=== PATIENT | female | born 1940 | race Caucasian/White ===

== ENCOUNTER 2018-01-26 17:43 | Inpatient (IN) | payer MEDICARE, MEDICAID ==
[~2018-01-26] VITALS: Ht 157.5 cm; Wt 83.4 kg
[2018-01-26 18:50] LABS: Albumin 3.5 g/dL (3.4-5.0); Anion Gap 7 (5-15); Aspartate Aminotransferase 13 U/L (15-37); BUN/Creatinine Ratio 26.7; Blood Urea Nitrogen 16 mg/dL (7-18); Calcium 9.1 mg/dL (8.5-10.1); Carbon Dioxide 30 mmol/L (21-32); Chloride 98 mmol/L (98-107); GFR African American 125 mL/min; GFR Non-African American 104 mL/min; Glucose 106 mg/dL (74-106); Magnesium 1.9 mg/dL (1.6-2.6); Potassium 3.7 mmol/L (3.5-5.1); Sodium 135 mmol/L (136-145)
[2018-01-26 18:55] LABS: Alanine Aminotransferase 14 U/L (13-56); Alkaline Phosphatase 109 U/L (45-117); Bilirubin, Total 0.7 mg/dL (0.2-1.0)
[2018-01-26 18:58] LABS: Basophils # (auto) 0 uL; Basophils % (auto) 0.5 % (0.0-2.0); Eosinophils # (auto) 0.1 uL; Hematocrit 40.3 % (36.0-46.0); Hemoglobin 13.9 g/dL (12.2-16.2); Lymphocytes # (auto) 0.6 uL; Lymphocytes % (auto) 7.2 % (10.0-50.0); Mean Corpuscular Hemoglobin 32.2 pg (28.0-32.0); Mean Corpuscular Hgb Conc. 34.5 g/dL (32.0-36.0); Mean Corpuscular Volume 93.1 fL (80.0-100.0); Monocytes # (auto) 0.5 uL; Monocytes % (auto) 6.2 % (0.0-12.0); Neutrophils # (auto) 7.5 uL; Neutrophils % (auto) 85.1 % (37.0-80.0); Nucleated Red Blood Cells % 0.1 %; Platelet Count (auto) 234 10^3/uL (140-450); Red Blood Cells 4.33 10^6/uL (4.0-5.20); White Blood Cell 8.8 10^3/uL (4.4-10.8)
[2018-01-26] MEDS ORDERED: IPRATROPIUM BROM 0.5 MG/2.5ML INH SOL HHN ONE (19:30)
[2018-01-26] MEDS ORDERED: ALBUTEROL SULF 2.5 MG/0.5ML(0.5%) NEB SOLN HHN ONE (19:30)
[2018-01-26] MEDS ORDERED: methylPREDNISolone SOD SUCC 125 MG/2 ML VL IV ONE (19:30)
[2018-01-26] MEDS ORDERED: ALBUTEROL SULF 2.5 MG/0.5ML(0.5%) NEB SOLN NEB PRN (22:30)
[2018-01-26] MEDS ORDERED: NITROGLYCERIN 0.4 MG SL TAB SL PRN (22:30)
[2018-01-26] MEDS ORDERED: ACETAMINOPHEN 325 MG TAB PO PRN (22:30)
[2018-01-26] MEDS ORDERED: TEMAZEPAM 15 MG CAP PO PRN (22:30)
[2018-01-26] MEDS ORDERED: IPRATROPIUM BROM 0.5 MG/2.5ML INH SOL NEB PRN (22:30)
[2018-01-26] MEDS ORDERED: ONDANSETRON HCL 4 MG/2 ML VIAL IV PRN (22:30)
[2018-01-26] MEDS ORDERED: MORPHINE SULFATE 4 MG/ML SYR/VIAL IV PRN (22:30)
[2018-01-26] MEDS ORDERED: cefTRIAXone 1GM/50ML D5W 50 ML IV ONE (22:45)
[2018-01-26 23:30] VITALS: BP 131/68
[2018-01-27] MEDS ORDERED: FLUP5TAB PO (01:10)
[2018-01-27] MEDS ORDERED: LORA1TAB12 PO (01:10)
[2018-01-27] MEDS ORDERED: TRAM50TA2 PO (01:10)
[2018-01-27] MEDS ORDERED: LISI-285 PO (01:10)
[2018-01-27] MEDS ORDERED: CITA-73 PO (01:10)
[2018-01-27] MEDS ORDERED: IOHEXOL 350 MG/ML 100ML IJ ONE (02:10)
[2018-01-27] MEDS: HYDROcodone-ACET 5/325MG TAB PO PRN ×5 (04:57→22:16)
[2018-01-27 05:00] VITALS: BP 146/95
[2018-01-27 07:51] LABS: Basophils # (auto) 0 uL; Basophils % (auto) 0.2 % (0.0-2.0); Eosinophils # (auto) 0 uL; Hematocrit 39.9 % (36.0-46.0); Hemoglobin 13.5 g/dL (12.2-16.2); Lymphocytes # (auto) 0.3 uL; Mean Corpuscular Hemoglobin 31.5 pg (28.0-32.0); Mean Corpuscular Hgb Conc. 33.9 g/dL (32.0-36.0); Mean Corpuscular Volume 92.9 fL (80.0-100.0); Monocytes # (auto) 0 uL; Monocytes % (auto) 0.8 % (0.0-12.0); Neutrophils # (auto) 5.8 uL; Nucleated Red Blood Cells % 0.1 %; Platelet Count (auto) 250 10^3/uL (140-450); Red Cell Distribution Width 13.9 % (11.8-14.3); White Blood Cell 6.1 10^3/uL (4.4-10.8)
[2018-01-27 08:01] LABS: Albumin 3.5 g/dL (3.4-5.0); Calcium 9.4 mg/dL (8.5-10.1); Potassium 3.9 mmol/L (3.5-5.1)
[2018-01-27 08:06] LABS: BUN/Creatinine Ratio 26.7; Bilirubin, Total 0.6 mg/dL (0.2-1.0)
[2018-01-27 09:00] VITALS: BP 112/54
[2018-01-27] MEDS: HCTZ 25 MG TAB PO SCH (09:11)
[2018-01-27] MEDS: FAMOTIDINE 20 MG TAB PO SCH ×2 (09:11→22:15)
[2018-01-27] MEDS: ENOXAPARIN SOD 40 MG/0.4 ML SYRINGE SC SCH (09:12)
[2018-01-27] MEDS: LISINOPRIL 10 MG TAB PO SCH (09:12)
[2018-01-27 13:00] VITALS: BP 118/60
[2018-01-27 17:00] VITALS: BP 121/64
[2018-01-27] MEDS ORDERED: cefTRIAXone 1GM/50ML D5W 50 ML IV SCH (21:00)
[2018-01-27 22:00] VITALS: BP 139/86
[2018-01-28 05:00] VITALS: BP 98/55
[2018-01-28] MEDS: ALBUTEROL SULF 2.5 MG/0.5ML(0.5%) NEB SOLN NEB SCH ×2 (07:20→12:28)
[2018-01-28] MEDS: IPRATROPIUM BROM 0.5 MG/2.5ML INH SOL NEB SCH ×2 (07:22→12:28)
[2018-01-28 09:00] VITALS: BP 102/55
[2018-01-28] MEDS: LISINOPRIL 10 MG TAB PO SCH (10:00)
[2018-01-28] MEDS ORDERED: predniSONE 20 MG TAB PO SCH (10:00)
[2018-01-28] MEDS: FAMOTIDINE 20 MG TAB PO SCH (10:02)
[2018-01-28] MEDS: HCTZ 25 MG TAB PO SCH (10:04)
[2018-01-28] MEDS: ENOXAPARIN SOD 40 MG/0.4 ML SYRINGE SC SCH (10:05)
[2018-01-28 13:00] VITALS: BP 120/60
[2018-01-28 13:07] VITALS: BP 120/60
== END 2018-01-28 16:40 | disposition home or self-care (01) | DRG 189 ==
LOC: ER 17:43 → EDBD 17:43 → TELE 17:44 → TELE-WESTW 23:15
PROVIDERS: ADMIT Nurse Practitioner; ATTEND Internal Medicine Pulmonary Disease
DX: J96.22 Acute and chronic respiratory failure with hypercapnia (principal); J44.0 Chronic obstructive pulmonary disease with (acute) lower respiratory infection; J20.9 Acute bronchitis, unspecified; I70.0 Atherosclerosis of aorta; R29.6 Repeated falls; F20.9 Schizophrenia, unspecified; R79.1 Abnormal coagulation profile; Z82.49 Family history of ischemic heart disease and other diseases of the circulatory system; Z87.891 Personal history of nicotine dependence; Z99.81 Dependence on supplemental oxygen; Z80.52 Family history of malignant neoplasm of bladder
CPT/HCPCS: 36415; 36600; 70450; 71045; 71275; 80053; 82805; 83735; 83880; 84484; 85025; 85379; 87040; 87081; 93005; 94640; 96372; 96374; 96375; G0378; J0696

== ENCOUNTER 2018-12-11 15:03 | Emergency (ER) | payer MEDICARE, MEDICAID ==
[~2018-12-11] VITALS: Ht 172.7 cm; Wt 90.7 kg
[~2018-12-11 15:03] MED LIST: CITA-73 PO; FLUP5TAB14 PO; LISI-285 PO; LORA1TAB12 PO; TRAM50TA2 PO
[2018-12-11] MEDS ORDERED: SODIUM CHLORIDE 0.9% 500 ML IVB ONE (16:32)
[2018-12-11] MEDS ORDERED: SODIUM CHLORIDE 0.9% 1,000 ML IV ONE (16:32)
[2018-12-11 16:35] LABS: Basophils # (auto) 0.1 uL; Eosinophils # (auto) 0.1 uL; Eosinophils % (auto) 0.8 % (0.0-7.0); Hematocrit 28.2 % (36.0-46.0); Hemoglobin 9.5 g/dL (12.2-16.2); Lymphocytes # (auto) 0.7 uL; Lymphocytes % (auto) 8.5 % (10.0-50.0); Mean Corpuscular Hemoglobin 31.3 pg (28.0-32.0); Mean Corpuscular Hgb Conc. 33.8 g/dL (32.0-36.0); Mean Corpuscular Volume 92.6 fL (80.0-100.0); Monocytes # (auto) 0.9 uL; Monocytes % (auto) 11.3 % (0.0-12.0); Neutrophils # (auto) 6.1 uL; Neutrophils % (auto) 78.4 % (37.0-80.0); Nucleated Red Blood Cells % 0.1 %; Platelet Count (auto) 250 10^3/uL (140-450); Red Blood Cells 3.05 10^6/uL (4.0-5.20); Red Cell Distribution Width 13.7 % (11.8-14.3); White Blood Cell 7.8 10^3/uL (4.4-10.8)
[2018-12-11 16:49] LABS: Albumin 2.7 g/dL (3.4-5.0); BUN/Creatinine Ratio 43.9; Calcium 8.9 mg/dL (8.5-10.1)
[2018-12-11 16:52] LABS: Bilirubin, Total 0.7 mg/dL (0.2-1.0)
[2018-12-11] MEDS ORDERED: MORPHINE SULF INJ 2 MG/ML SYRINGE 1ML IV ONE (17:00)
[2018-12-11] MEDS ORDERED: PROMETHAZINE HCL 25 MG/ML 1ML IV ONE (17:00)
[2018-12-11 17:20] LABS: Urine Bacteria NONE SEEN /hpf (None Seen); Urine Blood Negative /uL (Negative); Urine Specific Gravity 1.023 (1.001-1.035); Urine WBC 9 /hpf (0 - 5)
[2018-12-11 17:31] LABS: Amphetamine Screen, Urine NEGATIVE (NEGATIVE); Barbiturate Scree,Urine NEGATIVE (NEGATIVE); Benzodiazephine Screen, Urine NEGATIVE (NEGATIVE); Cannabinoid Screen, Urine NEGATIVE (NEGATIVE); Cocaine Screen, Urine NEGATIVE (NEGATIVE); Opiate Scree,Urine POSITIVE (NEGATIVE); Phencyclidine Screen, Urine NEGATIVE (NEGATIVE)
[2018-12-11] MEDS ORDERED: cefTRIAXone 1GM/50ML D5W 50 ML IV ONE (18:00)
[2018-12-11 21:42] VITALS: BP 120/69
== END 2018-12-11 18:10 | disposition short-term general hospital (02) ==
LOC: EDBD 15:03 → ER 15:11
DX: S06.5X0D Traumatic subdural hemorrhage without loss of consciousness, subsequent encounter (principal); S42.302D Unspecified fracture of shaft of humerus, left arm, subsequent encounter for fracture with routine healing; R41.82 Altered mental status, unspecified; N39.0 Urinary tract infection, site not specified; E46 Unspecified protein-calorie malnutrition; I48.91 Unspecified atrial fibrillation; J44.9 Chronic obstructive pulmonary disease, unspecified; I10 Essential (primary) hypertension; Z79.899 Other long term (current) drug therapy; Z85.3 Personal history of malignant neoplasm of breast; Z87.891 Personal history of nicotine dependence; Z68.30 Body mass index [BMI] 30.0-30.9, adult; W18.39XD Other fall on same level, subsequent encounter
CPT/HCPCS: 36415; 70450; 71045; 80053; 80307; 81001; 83605; 83735; 84443; 84484; 85025; 87040; 93005; 94761; 96361; 96365; 96375; 99285; J0696; J2270; J2550; J7030; J7040

== ENCOUNTER 2020-11-08 10:55 | Inpatient (IN) | payer MEDICARE, MEDICAID ==
[~2020-11-08] VITALS: Ht 157.5 cm; Wt 82.4 kg
[~2020-11-08 10:55] MED LIST changes: -LORA1TAB12 PO; +LORA1TAB23 PO
[2020-11-08 11:28] LABS: Basophils # (auto) 0.1 10 ^3/uL (0-0.2); Basophils % (auto) 0.6 % (0.0-2.0); Eosinophils # (auto) 0.1 10 ^3/uL (0-0.8); Eosinophils % (auto) 1.1 % (0.0-7.0); Hematocrit 40.3 % (36.0-46.0); Hemoglobin 13.5 g/dL (12.2-16.2); Lymphocytes % (auto) 12.2 % (10.0-50.0); Mean Corpuscular Hemoglobin 30.4 pg (28.0-32.0); Mean Corpuscular Hgb Conc. 33.5 g/dL (32.0-36.0); Mean Corpuscular Volume 90.9 fL (80.0-100.0); Monocytes # (auto) 0.3 10 ^3/uL (0-1.3); Monocytes % (auto) 4.1 % (0.0-12.0); Neutrophils # (auto) 6.6 10 ^3/uL (1.6-8.6); Red Blood Cells 4.43 10^6/uL (4.0-5.20); Red Cell Distribution Width 13.6 % (11.8-14.3); White Blood Cell 8.1 10^3/uL (4.4-10.8)
[2020-11-08 11:48] LABS: INR 0.99 (0.9-1.15)
[2020-11-08 11:53] LABS: Albumin 3.1 g/dL (3.4-5.0); Anion Gap 2 (5-15); Blood Urea Nitrogen 16 mg/dL (7-18); Calcium 8.9 mg/dL (8.5-10.1); Carbon Dioxide 31 mmol/L (21-32); Chloride 104 mmol/L (98-107); Glucose 136 mg/dL (74-106); Magnesium 2.1 mg/dL (1.6-2.6); Potassium 4.5 mmol/L (3.5-5.1); Sodium 137 mmol/L (136-145)
[2020-11-08 11:59] LABS: Alanine Aminotransferase 16 U/L (13-56); Alkaline Phosphatase 102 U/L (45-117); Aspartate Aminotransferase 15 U/L (15-37); BUN/Creatinine Ratio 32.7; Bilirubin, Total 0.3 mg/dL (0.2-1.0); GFR African American 157 mL/min; GFR Non-African American 130 mL/min; Total Protein 6.6 g/dL (6.4-8.2)
[2020-11-08] MEDS ORDERED: MORPHINE SULF INJ 2 MG/ML SYRINGE 1ML IV PRN (12:45)
[2020-11-08] MEDS ORDERED: NITROGLYCERIN 0.4 MG SL TAB SL PRN (12:45)
[2020-11-08] MEDS ORDERED: ACETAMINOPHEN 500 MG TAB PO PRN (12:45)
[2020-11-08] MEDS ORDERED: ONDANSETRON HCL 4 MG/2 ML VIAL IV PRN (12:45)
[2020-11-08] MEDS: MORPHINE SULF INJ 2 MG/ML SYRINGE 1ML IV PRN ×2 (13:22→18:55)
[2020-11-08] MEDS: HYDROcodone-ACET 5/325MG TAB PO PRN ×2 (16:10→22:32)
[2020-11-08 16:13] LABS: Urine Bacteria NONE SEEN /hpf (None Seen); Urine Blood Negative /uL (Negative); Urine Mucus FEW (None Seen); Urine Specific Gravity 1.022 (1.001-1.035); Urine WBC 1 /hpf (0 - 5)
[2020-11-08] MEDS: cefTRIAXone 1GM/50ML D5W 50 ML IV SCH (18:54)
[2020-11-09 01:30] VITALS: BP 130/84
[2020-11-09 05:00] VITALS: BP 149/56
[2020-11-09] MEDS: MORPHINE SULF INJ 2 MG/ML SYRINGE 1ML IV PRN ×2 (06:36→20:21)
[2020-11-09] MEDS: ENOXAPARIN SOD 40 MG/0.4 ML SYRINGE SC SCH (08:55)
[2020-11-09] MEDS: cefTRIAXone 1GM/50ML D5W 50 ML IV SCH (08:55)
[2020-11-09 09:00] VITALS: BP 137/83
[2020-11-09] MEDS ORDERED: PANTOPRAZOLE 40 MG TAB PO SCH (10:00)
[2020-11-09 12:30] VITALS: BP 116/58
[2020-11-09] MEDS ORDERED: ceFAZolin 1GM/50ML 100 ML IV ONE (12:56)
[2020-11-09] MEDS ORDERED: fentaNYL CITRATE 100 MCG/2 ML VL ONE (13:39)
[2020-11-09] MEDS ORDERED: MIDAZOLAM HCL 2MG/2ML 2ml VIAL (1mg/ml) ONE (13:40)
[2020-11-09] MEDS ORDERED: DexAMETHasone SOD PHOS 10MG/1ML VIAL INJ ONE (13:53)
[2020-11-09] MEDS ORDERED: PROPOFOL 10 MG/ML 20 ML IV ONE (13:53)
[2020-11-09] MEDS ORDERED: hydrALAZINE HCL 20 MG/ML VL IV PRN (14:45)
[2020-11-09] MEDS ORDERED: MIDAZOLAM HCL 2MG/2ML 2ml VIAL (1mg/ml) IV PRN (14:45)
[2020-11-09] MEDS ORDERED: ePHEDrine SULFATE 50 MG/ML AMP IV PRN (14:45)
[2020-11-09] MEDS ORDERED: MORPHINE SULFATE 4 MG/ML SYR/VIAL IV PRN (14:45)
[2020-11-09] MEDS ORDERED: ONDANSETRON HCL 4 MG/2 ML VIAL IV PRN (14:45)
[2020-11-09] MEDS ORDERED: HYDROmorphone HCL 2 MG/ML VL IV PRN (14:45)
[2020-11-09] MEDS ORDERED: LABETALOL HCL 5 MG/ML 4ML SYRINGE IV PRN (14:45)
[2020-11-09 17:00] VITALS: BP 143/87
[2020-11-09 22:00] VITALS: BP 136/90
[2020-11-10 05:00] VITALS: BP 133/77
[2020-11-10] MEDS: ENOXAPARIN SOD 40 MG/0.4 ML SYRINGE SC SCH (08:05)
[2020-11-10] MEDS: HYDROcodone-ACET 5/325MG TAB PO PRN (08:08)
[2020-11-10 09:00] VITALS: BP 135/87
[2020-11-10] MEDS ORDERED: LISINOPRIL 10 MG TAB PO SCH (10:00)
[2020-11-10] MEDS ORDERED: HCTZ 25 MG TAB PO SCH (10:00)
[2020-11-10] MEDS ORDERED: LORazepam 0.5 MG TAB PO PRN (10:00)
[2020-11-10] MEDS ORDERED: CITALOPRAM HYDROBR 20 MG TAB PO SCH (10:00)
[2020-11-10 13:00] VITALS: BP 150/83
[2020-11-10] MEDS ORDERED: FLUPHENAZINE 5 MG PO SCH (22:00)
== END 2020-11-10 16:15 | disposition home or self-care (01) | DRG 563 ==
LOC: ER 10:55 → EDBD 10:55 → TELE 12:43 → TELE-WESTW 23:52
PROVIDERS: ADMIT Nurse Practitioner Acute Care; ATTEND Internal Medicine
PROC: 0PSLXZZ Reposition Left Ulna, External Approach (ICD-10-PCS; 2020-11-09)
PROC: 0PSJXZZ Reposition Left Radius, External Approach (ICD-10-PCS; principal; 2020-11-09 13:30)
DX: S52.572A Other intraarticular fracture of lower end of left radius, initial encounter for closed fracture (principal); E44.0 Moderate protein-calorie malnutrition; S52.602A Unspecified fracture of lower end of left ulna, initial encounter for closed fracture; M85.88 Other specified disorders of bone density and structure, other site; Z20.822 Contact with and (suspected) exposure to COVID-19; W01.0XXA Fall on same level from slipping, tripping and stumbling without subsequent striking against object, initial encounter; J44.9 Chronic obstructive pulmonary disease, unspecified; F03.90 Unspecified dementia, unspecified severity, without behavioral disturbance, psychotic disturbance, mood disturbance, and anxiety; F20.9 Schizophrenia, unspecified; I11.0 Hypertensive heart disease with heart failure; F32.9 Major depressive disorder, single episode, unspecified; I48.91 Unspecified atrial fibrillation; E66.01 Morbid (severe) obesity due to excess calories; I50.9 Heart failure, unspecified; I67.2 Cerebral atherosclerosis; Y92.009 Unspecified place in unspecified non-institutional (private) residence as the place of occurrence of the external cause; Z80.52 Family history of malignant neoplasm of bladder; Z82.49 Family history of ischemic heart disease and other diseases of the circulatory system; Z85.3 Personal history of malignant neoplasm of breast; Z90.10 Acquired absence of unspecified breast and nipple; Z99.81 Dependence on supplemental oxygen; Z98.49 Cataract extraction status, unspecified eye; Z87.891 Personal history of nicotine dependence; Z79.899 Other long term (current) drug therapy; Z79.891 Long term (current) use of opiate analgesic; Z79.01 Long term (current) use of anticoagulants; Y93.89 Activity, other specified; Y99.8 Other external cause status; Z68.30 Body mass index [BMI] 30.0-30.9, adult
CPT/HCPCS: 36415; 70450; 71045; 73100; 73110; 76000; 80053; 81001; 83735; 84484; 85025; 85610; 85730; 86850; 86900; 86901; 87426; 93005; G0378; J0690; J0696; J1100; J2250; J2405; J2704

== ENCOUNTER 2021-09-16 12:45 | Inpatient (IN) | payer MEDICARE, MEDICAID ==
[~2021-09-16] VITALS: Ht 160 cm; Wt 75.0 kg
[2021-09-16] MEDS ORDERED: SODIUM CHLORIDE 0.9% 1,000 ML IV ONE (13:00)
[2021-09-16 13:36] LABS: Basophils # (auto) 0 10 ^3/uL (0-0.2); Basophils % (auto) 0.4 % (0.0-2.0); Eosinophils # (auto) 0 10 ^3/uL (0-0.8); Hematocrit 40.1 % (36.0-46.0); Hemoglobin 13.5 g/dL (12.2-16.2); Lymphocytes # (auto) 0.5 10 ^3/uL (0.4-5.4); Lymphocytes % (auto) 4.4 % (10.0-50.0); Mean Corpuscular Hemoglobin 29.9 pg (28.0-32.0); Mean Corpuscular Hgb Conc. 33.6 g/dL (32.0-36.0); Monocytes # (auto) 0.7 10 ^3/uL (0-1.3); Monocytes % (auto) 5.4 % (0.0-12.0); Neutrophils # (auto) 11.2 10 ^3/uL (1.6-8.6); Neutrophils % (auto) 89.8 % (37.0-80.0); Red Blood Cells 4.51 10^6/uL (4.0-5.20); Red Cell Distribution Width 14.8 % (11.8-14.3); White Blood Cell 12.5 10^3/uL (4.4-10.8)
[2021-09-16 13:49] LABS: Albumin 3.5 g/dL (3.4-5.0); Calcium 9.5 mg/dL (8.5-10.1); Potassium 4.2 mmol/L (3.5-5.1)
[2021-09-16 13:54] LABS: BUN/Creatinine Ratio 27.8; Total Protein 7.2 g/dL (6.4-8.2)
[2021-09-16 14:18] LABS: Urine Bacteria NONE SEEN /hpf (None Seen); Urine Blood 1+ /uL (Negative); Urine Mucus FEW (None Seen); Urine Specific Gravity 1.018 (1.001-1.035); Urine WBC 216 /hpf (0 - 5)
[2021-09-16] MEDS ORDERED: cefTRIAXone 1GM/50ML D5W 50 ML IV ONE (15:30)
[2021-09-16] MEDS ORDERED: ACETAMINOPHEN 650 MG RECT SUPP PR ONE (15:30)
[2021-09-16] MEDS ORDERED: ACETAMINOPHEN 325 MG TAB PO ONE (15:45)
[2021-09-16] MEDS ORDERED: DOCUSATE SOD 100 MG CAP PO PRN (21:45)
[2021-09-16] MEDS ORDERED: ACETAMINOPHEN 325 MG TAB PO PRN (21:45)
[2021-09-16] MEDS ORDERED: ONDANSETRON HCL 4 MG/2 ML VIAL IV PRN (21:45)
[2021-09-16] MEDS: SODIUM CHLOR 0.9% PF (SALINE LOCK) 10ML VIAL/SYR IV SCH (22:00)
[2021-09-16] MEDS ORDERED: ALBUTEROL SULF HFA 90MCG INH 200DOSE IN SCH (22:00)
[2021-09-16] MEDS ORDERED: ALBUTEROL SULF 2.5 MG/0.5ML(0.5%) NEB SOLN NEB PRN (22:15)
[2021-09-16] MEDS ORDERED: NITROGLYCERIN 0.4 MG SL TAB SL PRN (22:45)
[2021-09-16] MEDS ORDERED: MORPHINE SULFATE INJ 2 MG/ml SYRG IV PRN (22:45)
[2021-09-17] VITALS (9 sets, daily range): BP systolic 111–153; BP diastolic 53–81
[2021-09-17] MEDS ORDERED: KETO2SHA5 TOP (02:30)
[2021-09-17] MEDS ORDERED: METO25TA93 PO (02:30)
[2021-09-17] MEDS ORDERED: HYDR1TAB97 (02:30)
[2021-09-17] MEDS: HYDROcodone-ACET 5/325MG TAB PO PRN (03:26)
[2021-09-17 05:34] LABS: Basophils # (auto) 0 10 ^3/uL (0-0.2); Basophils % (auto) 0.5 % (0.0-2.0); Eosinophils # (auto) 0.1 10 ^3/uL (0-0.8); Eosinophils % (auto) 0.7 % (0.0-7.0); Hematocrit 34.2 % (36.0-46.0); Hemoglobin 11.6 g/dL (12.2-16.2); Lymphocytes # (auto) 0.6 10 ^3/uL (0.4-5.4); Lymphocytes % (auto) 9.2 % (10.0-50.0); Mean Corpuscular Hemoglobin 30.4 pg (28.0-32.0); Mean Corpuscular Volume 89.5 fL (80.0-100.0); Monocytes # (auto) 0.8 10 ^3/uL (0-1.3); Monocytes % (auto) 10.8 % (0.0-12.0); Neutrophils # (auto) 5.5 10 ^3/uL (1.6-8.6); Neutrophils % (auto) 78.8 % (37.0-80.0); Red Blood Cells 3.83 10^6/uL (4.0-5.20); Red Cell Distribution Width 14.4 % (11.8-14.3)
[2021-09-17 05:48] LABS: Albumin 2.9 g/dL (3.4-5.0); Calcium 8.7 mg/dL (8.5-10.1); Potassium 3.7 mmol/L (3.5-5.1)
[2021-09-17 05:53] LABS: BUN/Creatinine Ratio 32.6; Bilirubin, Total 0.6 mg/dL (0.2-1.0)
[2021-09-17] MEDS: SODIUM CHLOR 0.9% PF (SALINE LOCK) 10ML VIAL/SYR IV SCH ×3 (05:54→22:01)
[2021-09-17] MEDS ORDERED: cefTRIAXone 1GM/50ML D5W 50 ML IV SCH (09:00)
[2021-09-17] MEDS: ENOXAPARIN SOD 40 MG/0.4 ML SYRINGE SC SCH (09:39)
[2021-09-17] MEDS ORDERED: FAMOTIDINE (10MG/ML) 2ML VL IV SCH (10:00)
[2021-09-17] MEDS ORDERED: LORazepam 0.5 MG TAB PO PRN (12:30)
[2021-09-17] MEDS ORDERED: MIRA25TA PO (13:16)
[2021-09-17] MEDS ORDERED: HYDR50CA2 PO (13:16)
[2021-09-17] MEDS ORDERED: LORA-655 PO (13:16)
[2021-09-17] MEDS ORDERED: SODIUM CHLORIDE 0.9% 500 ML IV ONE (19:15)
[2021-09-17] MEDS: FLUPHENAZINE HCL 5 MG PO SCH (20:37)
[2021-09-17] MEDS: PIPERACILLIN-TAZOB 3.375GM 100 ML IV SCH (23:47)
[2021-09-18] MEDS: HYDROcodone-ACET 5/325MG TAB PO PRN ×4 (04:42→23:37)
[2021-09-18 05:00] VITALS: BP 112/55
[2021-09-18] MEDS: SODIUM CHLOR 0.9% PF (SALINE LOCK) 10ML VIAL/SYR IV SCH ×3 (05:51→21:37)
[2021-09-18] MEDS: PIPERACILLIN-TAZOB 3.375GM 100 ML IV SCH ×3 (05:52→21:42)
[2021-09-18 07:19] LABS: Basophils # (auto) 0 10 ^3/uL (0-0.2); Basophils % (auto) 0.6 % (0.0-2.0); Eosinophils # (auto) 0 10 ^3/uL (0-0.8); Eosinophils % (auto) 1.3 % (0.0-7.0); Hematocrit 33.4 % (36.0-46.0); Hemoglobin 11.6 g/dL (12.2-16.2); Lymphocytes # (auto) 0.6 10 ^3/uL (0.4-5.4); Lymphocytes % (auto) 16.5 % (10.0-50.0); Mean Corpuscular Hemoglobin 30.7 pg (28.0-32.0); Mean Corpuscular Hgb Conc. 34.8 g/dL (32.0-36.0); Mean Corpuscular Volume 88.3 fL (80.0-100.0); Monocytes # (auto) 0.4 10 ^3/uL (0-1.3); Monocytes % (auto) 11.9 % (0.0-12.0); Neutrophils # (auto) 2.4 10 ^3/uL (1.6-8.6); Neutrophils % (auto) 69.7 % (37.0-80.0); Red Blood Cells 3.78 10^6/uL (4.0-5.20); Red Cell Distribution Width 14.1 % (11.8-14.3); White Blood Cell 3.4 10^3/uL (4.4-10.8)
[2021-09-18 09:00] VITALS: BP 110/59
[2021-09-18] MEDS: FLUPHENAZINE HCL 5 MG PO SCH ×2 (09:58→21:43)
[2021-09-18] MEDS ORDERED: MYRBETRIQ 25 MG PO SCH (10:00)
[2021-09-18] MEDS: CITALOPRAM HYDROBR 20 MG TAB PO SCH (10:05)
[2021-09-18] MEDS: METOPROLOL SUCCINATE XL 50 MG TAB PO SCH (10:06)
[2021-09-18] MEDS: ENOXAPARIN SOD 40 MG/0.4 ML SYRINGE SC SCH (10:06)
[2021-09-18] MEDS: PANTOPRAZOLE 40 MG/10 ML VIAL INJ IV SCH (10:07)
[2021-09-18 13:00] VITALS: BP 133/65
[2021-09-18 17:05] VITALS: BP 103/56
[2021-09-18 22:37] VITALS: BP 103/59
[2021-09-19 05:00] VITALS: BP 122/71
[2021-09-19] MEDS: PIPERACILLIN-TAZOB 3.375GM 100 ML IV SCH (05:27)
[2021-09-19] MEDS: SODIUM CHLOR 0.9% PF (SALINE LOCK) 10ML VIAL/SYR IV SCH (05:27)
[2021-09-19] MEDS ORDERED: CIPR-173 PO (08:56)
[2021-09-19 09:00] VITALS: BP 149/85
[2021-09-19] MEDS: PANTOPRAZOLE 40 MG/10 ML VIAL INJ IV SCH (09:50)
[2021-09-19] MEDS: CITALOPRAM HYDROBR 20 MG TAB PO SCH (09:51)
[2021-09-19] MEDS: ENOXAPARIN SOD 40 MG/0.4 ML SYRINGE SC SCH (09:51)
[2021-09-19] MEDS: METOPROLOL SUCCINATE XL 50 MG TAB PO SCH (09:51)
[2021-09-19] MEDS: HYDROcodone-ACET 5/325MG TAB PO PRN (09:58)
[2021-09-19] MEDS: FLUPHENAZINE HCL 5 MG PO SCH (09:58)
[2021-09-19] MEDS ORDERED: MYRBETRIQ 25 MG TABLET PO SCH (10:00)
[2021-09-19 13:14] VITALS: BP 117/51
== END 2021-09-19 13:10 | disposition home health service (06) | DRG 871 ==
LOC: EDBD 12:45 → ER 12:45 → OVERFLOW 22:45 → CENTRAL 23:40
PROVIDERS: ADMIT Nurse Practitioner Family; ATTEND Family Medicine
DX: A41.51 Sepsis due to Escherichia coli [E. coli] (principal); G93.41 Metabolic encephalopathy; N39.0 Urinary tract infection, site not specified; I10 Essential (primary) hypertension; F20.9 Schizophrenia, unspecified; E86.0 Dehydration; F03.90 Unspecified dementia, unspecified severity, without behavioral disturbance, psychotic disturbance, mood disturbance, and anxiety; R73.9 Hyperglycemia, unspecified; Z20.822 Contact with and (suspected) exposure to COVID-19; F32.A Depression, unspecified; I48.91 Unspecified atrial fibrillation; J44.9 Chronic obstructive pulmonary disease, unspecified; Z82.49 Family history of ischemic heart disease and other diseases of the circulatory system; Z87.891 Personal history of nicotine dependence
CPT/HCPCS: 36415; 70450; 71045; 80053; 81001; 83036; 83605; 83880; 84484; 85025; 87040; 87077; 87086; 87088; 87186; 93005; 96361; 96365; C9113; G0378; J0696; J2405; J2543

== ENCOUNTER 2022-03-25 14:20 | Inpatient (IN) | payer MEDICARE, MEDICAID ==
[~2022-03-25 14:20] MED LIST changes: +CIPR-173 PO; +HYDR1TAB97; +HYDR50CA2 PO; -LISI-285 PO; +LORA-655 PO; -LORA1TAB23 PO; +METO25TA93 PO; +MIRA25TA PO; -TRAM50TA2 PO
[2022-03-25] MEDS ORDERED: SODIUM CHLORIDE 0.9% 500 ML IV ONE (15:30)
[2022-03-25 16:06] LABS: Basophils # (auto) 0.1 10 ^3/uL (0-0.2); Basophils % (auto) 0.9 % (0.0-2.0); Eosinophils # (auto) 0.3 10 ^3/uL (0-0.8); Hematocrit 37.8 % (36.0-46.0); Hemoglobin 12.4 g/dL (12.2-16.2); Lymphocytes # (auto) 1.5 10 ^3/uL (0.4-5.4); Lymphocytes % (auto) 23.4 % (10.0-50.0); Mean Corpuscular Hemoglobin 29.9 pg (28.0-32.0); Mean Corpuscular Volume 90.6 fL (80.0-100.0); Monocytes # (auto) 0.4 10 ^3/uL (0-1.3); Monocytes % (auto) 6.2 % (0.0-12.0); Neutrophils # (auto) 4.2 10 ^3/uL (1.6-8.6); Neutrophils % (auto) 65.5 % (37.0-80.0); Nucleated Red Blood Cells % 0.1 %; Red Blood Cells 4.17 10^6/uL (4.0-5.20); Red Cell Distribution Width 13.2 % (11.8-14.3); White Blood Cell 6.5 10^3/uL (4.4-10.8)
[2022-03-25 16:23] LABS: Albumin 3.1 g/dL (3.4-5.0); Calcium 9.2 mg/dL (8.5-10.1); Magnesium 2.2 mg/dL (1.6-2.6); Potassium 4.7 mmol/L (3.5-5.1)
[2022-03-25 16:27] LABS: BUN/Creatinine Ratio 31.3; Bilirubin, Total 0.2 mg/dL (0.2-1.0); Total Protein 5.8 g/dL (6.4-8.2)
[2022-03-25] MEDS ORDERED: ONDANSETRON HCL 4 MG/2 ML VIAL IV PRN (22:00)
[2022-03-25] MEDS ORDERED: ACETAMINOPHEN 325 MG TAB PO PRN (22:00)
[2022-03-26 03:19] LABS: Urine Bacteria NONE SEEN /hpf (None Seen); Urine Blood Negative /uL (Negative); Urine Specific Gravity 1.025 (1.001-1.035); Urine WBC 1 /hpf (0 - 5)
[2022-03-26 06:53] LABS: Alcohol, Urine < 3.0 mg/dL (0-10); Amphetamine Screen, Urine NEGATIVE (NEGATIVE); Barbiturate Scree,Urine NEGATIVE (NEGATIVE); Benzodiazephine Screen, Urine NEGATIVE (NEGATIVE); Cannabinoid Screen, Urine NEGATIVE (NEGATIVE); Cocaine Screen, Urine NEGATIVE (NEGATIVE); Opiate Scree,Urine POSITIVE (NEGATIVE); Phencyclidine Screen, Urine NEGATIVE (NEGATIVE)
[2022-03-26 07:09] LABS: Basophils # (auto) 0.1 10 ^3/uL (0-0.2); Basophils % (auto) 1.3 % (0.0-2.0); Eosinophils # (auto) 0.2 10 ^3/uL (0-0.8); Eosinophils % (auto) 2.9 % (0.0-7.0); Hematocrit 36.7 % (36.0-46.0); Hemoglobin 12.4 g/dL (12.2-16.2); Lymphocytes # (auto) 1.1 10 ^3/uL (0.4-5.4); Mean Corpuscular Hemoglobin 30.4 pg (28.0-32.0); Mean Corpuscular Hgb Conc. 33.9 g/dL (32.0-36.0); Mean Corpuscular Volume 89.8 fL (80.0-100.0); Monocytes # (auto) 0.4 10 ^3/uL (0-1.3); Monocytes % (auto) 6.7 % (0.0-12.0); Neutrophils # (auto) 3.9 10 ^3/uL (1.6-8.6); Neutrophils % (auto) 69.1 % (37.0-80.0); Red Blood Cells 4.09 10^6/uL (4.0-5.20); Red Cell Distribution Width 13.1 % (11.8-14.3); White Blood Cell 5.6 10^3/uL (4.4-10.8)
[2022-03-26 07:20] LABS: Potassium 4.4 mmol/L (3.5-5.1)
[2022-03-26 07:25] LABS: BUN/Creatinine Ratio 32.6; Calcium 8.8 mg/dL (8.5-10.1)
[2022-03-26] MEDS: cefTRIAXone 1GM/50ML D5W 50 ML IV SCH (09:23)
[2022-03-26] MEDS: CITALOPRAM HYDROBR 20 MG TAB PO SCH (10:06)
[2022-03-26] MEDS: PANTOPRAZOLE 40 MG TAB PO SCH (10:06)
[2022-03-26] MEDS: ENOXAPARIN SOD 40 MG/0.4 ML SYRINGE SC SCH (10:07)
[2022-03-26] MEDS: LISINOPRIL 10 MG TAB PO SCH (10:17)
[2022-03-26 18:00] VITALS: BP 166/95
[2022-03-26 22:00] VITALS: BP 128/87
[2022-03-27 05:00] VITALS: BP 141/80
[2022-03-27 09:00] VITALS: BP 132/89
[2022-03-27] MEDS: traMADol HCL 50 MG TAB PO PRN ×2 (10:02→17:28)
[2022-03-27] MEDS: CITALOPRAM HYDROBR 20 MG TAB PO SCH (10:17)
[2022-03-27] MEDS: PANTOPRAZOLE 40 MG TAB PO SCH (10:17)
[2022-03-27] MEDS: ENOXAPARIN SOD 40 MG/0.4 ML SYRINGE SC SCH ×2 (10:18→10:20)
[2022-03-27] MEDS: LISINOPRIL 10 MG TAB PO SCH (10:18)
[2022-03-27] MEDS: cefTRIAXone 1GM/50ML D5W 50 ML IV SCH (10:19)
[2022-03-27 13:00] VITALS: BP 124/86
[2022-03-27 17:00] VITALS: BP 148/83
[2022-03-27 22:00] VITALS: BP 100/65
[2022-03-28 05:00] VITALS: BP 123/78
[2022-03-28] MEDS: cefTRIAXone 1GM/50ML D5W 50 ML IV SCH (08:22)
[2022-03-28 09:00] VITALS: BP 124/70
[2022-03-28] MEDS ORDERED: LEVO500T31 PO (09:02)
[2022-03-28] MEDS ORDERED: TRAM50TA2 PO (09:02)
[2022-03-28] MEDS: LISINOPRIL 10 MG TAB PO SCH (09:34)
[2022-03-28] MEDS: CITALOPRAM HYDROBR 20 MG TAB PO SCH (09:34)
[2022-03-28] MEDS: PANTOPRAZOLE 40 MG TAB PO SCH (09:34)
[2022-03-28] MEDS: ENOXAPARIN SOD 40 MG/0.4 ML SYRINGE SC SCH (09:34)
[2022-03-28 12:58] VITALS: BP 139/89
[2022-03-28 13:00] VITALS: BP 139/89
== END 2022-03-28 14:20 | disposition home or self-care (01) | DRG 70 ==
LOC: EDBD 14:20 → ER 14:20 → OVERFLOW 22:07 → CENTRAL 03-26 18:16
PROVIDERS: ADMIT Nurse Practitioner; ATTEND Family Medicine
DX: G93.41 Metabolic encephalopathy (principal); J96.00 Acute respiratory failure, unspecified whether with hypoxia or hypercapnia; F03.93 Unspecified dementia, unspecified severity, with mood disturbance; N39.0 Urinary tract infection, site not specified; I10 Essential (primary) hypertension; I48.91 Unspecified atrial fibrillation; Z20.822 Contact with and (suspected) exposure to COVID-19; F20.9 Schizophrenia, unspecified; J44.9 Chronic obstructive pulmonary disease, unspecified; Z80.52 Family history of malignant neoplasm of bladder; Z82.49 Family history of ischemic heart disease and other diseases of the circulatory system; Z87.891 Personal history of nicotine dependence; Z87.440 Personal history of urinary (tract) infections
CPT/HCPCS: 36415; 70450; 71045; 80048; 80053; 80307; 81001; 82140; 82962; 83605; 83735; 85025; 87086; 87426; 93005; 96361; 96365; 96372; G0378; J0696; J2405

== ENCOUNTER 2022-10-05 11:24 | Inpatient (IN) | payer MEDICARE, MEDICAID ==
[~2022-10-05] VITALS: Ht 157.5 cm; Wt 62.9 kg
[~2022-10-05 11:24] MED LIST changes: +LEVO500T31 PO; +TRAM50TA2 PO
[2022-10-05] MEDS ORDERED: IPRATROPIUM BROM 0.5 MG/2.5ML INH SOL HHN ONE (11:45)
[2022-10-05] MEDS ORDERED: DexAMETHasone SOD PHOS 10MG/1ML VIAL INJ IV ONE (11:45)
[2022-10-05] MEDS ORDERED: ALBUTEROL SULF 2.5 MG/0.5ML(0.5%) NEB SOLN HHN ONE (11:45)
[2022-10-05 12:31] LABS: Basophils # (auto) 0 10 ^3/uL (0-0.2); Basophils % (auto) 0.6 % (0.0-2.0); Eosinophils # (auto) 0.2 10 ^3/uL (0-0.8); Hematocrit 40.3 % (36.0-46.0); Hemoglobin 13.4 g/dL (12.2-16.2); Lymphocytes # (auto) 1.4 10 ^3/uL (0.4-5.4); Lymphocytes % (auto) 21.8 % (10.0-50.0); Mean Corpuscular Hemoglobin 29.6 pg (28.0-32.0); Mean Corpuscular Hgb Conc. 33.1 g/dL (32.0-36.0); Mean Corpuscular Volume 89.2 fL (80.0-100.0); Monocytes # (auto) 0.4 10 ^3/uL (0-1.3); Monocytes % (auto) 6.7 % (0.0-12.0); Neutrophils # (auto) 4.4 10 ^3/uL (1.6-8.6); Neutrophils % (auto) 67.9 % (37.0-80.0); Nucleated Red Blood Cells % 0.1 %; Red Blood Cells 4.52 10^6/uL (4.0-5.20); Red Cell Distribution Width 13.4 % (11.8-14.3); White Blood Cell 6.5 10^3/uL (4.4-10.8)
[2022-10-05 12:49] LABS: Urine Bacteria NONE SEEN /hpf (None Seen); Urine Blood Negative /uL (Negative); Urine Specific Gravity 1.009 (1.001-1.035); Urine WBC 7 /hpf (0 - 5)
[2022-10-05 12:52] LABS: Albumin 3.6 g/dL (3.4-5.0); Potassium 4.1 mmol/L (3.5-5.1)
[2022-10-05 12:56] LABS: BUN/Creatinine Ratio 17.2 (10.0-20.0); Bilirubin, Total 0.5 mg/dL (0.2-1.0); Total Protein 6.3 g/dL (6.4-8.2)
[2022-10-05] MEDS ORDERED: cefTRIAXone 1GM/50ML D5W 50 ML IV ONE (15:30)
[2022-10-05] MEDS: FUROSEMIDE 20 MG/2 ML VIAL IV SCH (22:12)
[2022-10-05] MEDS: ATORVASTATIN 20 MG TAB PO SCH (22:12)
[2022-10-06] MEDS: METOPROLOL SUCCINATE XL 50 MG TAB PO SCH ×3 (06:31→21:35)
[2022-10-06] MEDS ORDERED: cefTRIAXone 1GM/50ML D5W 50 ML IV SCH (09:00)
[2022-10-06] MEDS: ASPirin 81 mg TAB PO SCH (10:00)
[2022-10-06] MEDS: FUROSEMIDE 20 MG/2 ML VIAL IV SCH (10:00)
[2022-10-06] MEDS: MIRABEGRON BASE 25 MG PO SCH (10:00)
[2022-10-06 14:00] VITALS: BP 158/79
[2022-10-06 14:45] VITALS: BP 158/79
[2022-10-06 15:51] VITALS: BP 158/79
[2022-10-06 17:00] VITALS: BP 137/66
[2022-10-06 20:00] VITALS: BP 151/86
[2022-10-06] MEDS: ATORVASTATIN 20 MG TAB PO SCH (21:32)
[2022-10-06 22:00] VITALS: BP_SYST 108; BP_SYST 151; BP_DIAS 57; BP_DIAS 86
[2022-10-07] VITALS (7 sets, daily range): BP systolic 126–152; BP diastolic 68–94
[2022-10-07] MEDS: METOPROLOL SUCCINATE XL 50 MG TAB PO SCH ×3 (06:29→22:18)
[2022-10-07] MEDS: ASPirin 81 mg TAB PO SCH (09:03)
[2022-10-07] MEDS: MIRABEGRON BASE 25 MG PO SCH (09:34)
[2022-10-07] MEDS ORDERED: predniSONE 20 MG TAB PO ONE (12:00)
[2022-10-07] MEDS: ATORVASTATIN 20 MG TAB PO SCH (22:17)
[2022-10-08 05:00] VITALS: BP 138/84
[2022-10-08] MEDS: METOPROLOL SUCCINATE XL 50 MG TAB PO SCH ×3 (06:28→21:00)
[2022-10-08 07:43] VITALS: BP 142/74
[2022-10-08 08:38] VITALS: BP 131/69
[2022-10-08] MEDS: MIRABEGRON BASE 25 MG PO SCH (08:47)
[2022-10-08] MEDS: ASPirin 81 mg TAB PO SCH (09:17)
[2022-10-08] MEDS: predniSONE 20 MG TAB PO SCH (09:17)
[2022-10-08 12:46] VITALS: BP 149/74
[2022-10-08 17:00] VITALS: BP 115/61
[2022-10-08] MEDS ORDERED: DOXYCYCLINE 100 MG TAB/CAP PO SCH (18:00)
[2022-10-08] MEDS: ATORVASTATIN 20 MG TAB PO SCH (21:00)
[2022-10-08 22:00] VITALS: BP 117/74
[2022-10-09 05:00] VITALS: BP 122/62
[2022-10-09] MEDS: METOPROLOL SUCCINATE XL 50 MG TAB PO SCH (05:52)
[2022-10-09] MEDS ORDERED: DOXYCYCLINE 100 MG TAB/CAP PO SCH (06:00)
[2022-10-09 07:11] LABS: Basophils # (auto) 0 10 ^3/uL (0-0.2); Basophils % (auto) 0.3 % (0.0-2.0); Eosinophils # (auto) 0.1 10 ^3/uL (0-0.8); Eosinophils % (auto) 0.7 % (0.0-7.0); Hematocrit 37.9 % (36.0-46.0); Hemoglobin 12.9 g/dL (12.2-16.2); Lymphocytes % (auto) 23.1 % (10.0-50.0); Mean Corpuscular Hgb Conc. 33.9 g/dL (32.0-36.0); Mean Corpuscular Volume 88.5 fL (80.0-100.0); Monocytes # (auto) 0.7 10 ^3/uL (0-1.3); Monocytes % (auto) 7.9 % (0.0-12.0); Nucleated Red Blood Cells % 0.1 %; Red Blood Cells 4.29 10^6/uL (4.0-5.20); Red Cell Distribution Width 13.4 % (11.8-14.3); White Blood Cell 8.9 10^3/uL (4.4-10.8)
[2022-10-09 07:30] LABS: Potassium 4.1 mmol/L (3.5-5.1)
[2022-10-09 07:53] LABS: BUN/Creatinine Ratio 31.7 (10.0-20.0); Calcium 9.3 mg/dL (8.5-10.1)
[2022-10-09 09:00] VITALS: BP 113/54
[2022-10-09] MEDS: MIRABEGRON BASE 25 MG PO SCH (09:30)
[2022-10-09] MEDS: ASPirin 81 mg TAB PO SCH (09:33)
[2022-10-09] MEDS: predniSONE 20 MG TAB PO SCH (09:33)
[2022-10-09] MEDS ORDERED: DOXY-448 PO (10:58)
[2022-10-09] MEDS ORDERED: PRED20TA2 PO (10:58)
[2022-10-09] MEDS ORDERED: FURO1TAB33 PO (11:00)
[2022-10-09 12:00] VITALS: BP 135/68
[2022-11-05] MEDS ORDERED: FUROSEMIDE 40 MG TAB PO SCH (22:00)
== END 2022-10-09 14:00 | disposition home or self-care (01) | DRG 291 ==
LOC: ER 11:24 → TELE 16:35 → TELE-WESTW 10-06 14:22 → WEST WING 10-06 17:52
PROVIDERS: ADMIT Nurse Practitioner Family; ATTEND Internal Medicine Pulmonary Disease
DX: I11.0 Hypertensive heart disease with heart failure (principal); G93.41 Metabolic encephalopathy; J96.01 Acute respiratory failure with hypoxia; I50.43 Acute on chronic combined systolic (congestive) and diastolic (congestive) heart failure; J96.21 Acute and chronic respiratory failure with hypoxia; J44.1 Chronic obstructive pulmonary disease with (acute) exacerbation; N30.00 Acute cystitis without hematuria; F32.A Depression, unspecified; F03.90 Unspecified dementia, unspecified severity, without behavioral disturbance, psychotic disturbance, mood disturbance, and anxiety; F20.9 Schizophrenia, unspecified; I48.91 Unspecified atrial fibrillation; Z87.891 Personal history of nicotine dependence
CPT/HCPCS: 36415; 36600; 71045; 80048; 80053; 81001; 82805; 83880; 84484; 85025; 87086; 93005; 93306; 94640; G0378; J0696; J1100

== ENCOUNTER 2023-12-11 10:27 | Inpatient (IN) | payer MEDICARE, MEDICAID ==
[~2023-12-11] VITALS: Ht 157.5 cm; Wt 53.3 kg
[~2023-12-11 10:27] MED LIST changes: -CIPR-173 PO; +DOXY100C79 PO; +FURO1TAB33 PO; -LEVO500T31 PO; +PRED20TA2 PO
[2023-12-11 11:28] LABS: Basophils # (auto) 0 10 ^3/uL (0-0.2); Basophils % (auto) 0.9 % (0.0-2.0); Eosinophils # (auto) 0 10 ^3/uL (0-0.8); Eosinophils % (auto) 0.6 % (0.0-7.0); Hematocrit 34.3 % (36.0-46.0); Hemoglobin 11.7 g/dL (12.2-16.2); Lymphocytes # (auto) 0.8 10 ^3/uL (0.4-5.4); Lymphocytes % (auto) 15.4 % (10.0-50.0); Mean Corpuscular Hemoglobin 30.6 pg (28.0-32.0); Monocytes # (auto) 0.7 10 ^3/uL (0-1.3); Monocytes % (auto) 12.2 % (0.0-12.0); Neutrophils # (auto) 3.8 10 ^3/uL (1.6-8.6); Neutrophils % (auto) 70.9 % (37.0-80.0); Nucleated Red Blood Cells % 0.1 %; Platelet Count (auto) 192 10^3/uL (140-450); Red Blood Cells 3.82 10^6/uL (4.0-5.20); Red Cell Distribution Width 13.9 % (11.8-14.3); White Blood Cell 5.4 10^3/uL (4.4-10.8)
[2023-12-11 12:03] LABS: Alanine Aminotransferase 15 U/L (7-40); Albumin 3.7 g/dL (3.2-4.8); Alkaline Phosphatase 71 U/L (46-116); Anion Gap 8 (5-15); Aspartate Aminotransferase 25 U/L (13-40); BUN/Creatinine Ratio 14.8 (10.0-20.0); Bilirubin, Total 0.5 mg/dL (0.2-1.0); Blood Urea Nitrogen 8 mg/dL (9-23); Calcium 9.8 mg/dL (8.7-10.4); Carbon Dioxide 25 mmol/L (20-30); Chloride 104 mmol/L (98-107); Glucose 103 mg/dL (74-106); Potassium 3.8 mmol/L (3.5-5.1); Sodium 137 mmol/L (136-145); Total Protein 6.1 g/dL (5.7-8.2)
[2023-12-11 15:18] LABS: Urine Bacteria None Seen /hpf (None Seen)
[2023-12-11] MEDS: cefTRIAXone 1GM/50ML D5W 50 ML IV ONE (15:30)
[2023-12-11 15:44] LABS: Urine Blood Negative /uL (Negative); Urine Clarity Clear (Clear); Urine Color Light-Yellow (Yellow); Urine Protein, UAD Negative (Negative); Urine Urobilinogen Normal (Negative); Urine WBC 7 /hpf (0 - 5)
[2023-12-11] MEDS ORDERED: LORazepam 0.5 MG TAB PO PRN (17:30)
[2023-12-11] MEDS: SODIUM CHLORIDE 0.9% 1,000 ML IV SCH (17:30)
[2023-12-11] MEDS ORDERED: MORPHINE SULFATE INJ 2 MG/ml SYRG IV PRN (17:30)
[2023-12-11] MEDS ORDERED: ONDANSETRON HCL 4 MG/2 ML VIAL IV PRN (17:30)
[2023-12-11] MEDS ORDERED: DOCUSATE SOD 100 MG CAP PO PRN (17:30)
[2023-12-11] MEDS ORDERED: NITROGLYCERIN 0.4 MG SL TAB SL PRN (17:30)
[2023-12-11 18:00] VITALS: BP 108/57; PULSE 87; RESP 16; TEMP 98.2; O2SAT 95
[2023-12-11] MEDS ORDERED: levoFLOXacin 250MG 50 ML IV ONE (18:00)
[2023-12-11] MEDS: methylPREDNISolone SOD SUCC 125 MG/2 ML VL IV ONE (18:00)
[2023-12-11] MEDS: PANTOPRAZOLE 40 MG/10 ML VIAL INJ IV ONE (18:00)
[2023-12-11] MEDS ORDERED: ALBUTEROL SULF 2.5 MG/0.5ML(0.5%) NEB SOLN NEB PRN ×2 (18:00→22:00)
[2023-12-11] MEDS ORDERED: ALBUTEROL SULF 2.5 MG/0.5ML(0.5%) NEB SOLN NEB ONE (18:00)
[2023-12-11] MEDS: levoFLOXacin 500MG 100 ML IV ONE (18:06)
[2023-12-11] MEDS: ALBUTEROL SULF 2.5 MG/0.5ML(0.5%) NEB SOLN NEB ONE (18:59)
[2023-12-11 19:53] VITALS: PULSE 90; RESP 16; O2SAT 95
[2023-12-11 22:50] VITALS: BP 133/70; PULSE 79; RESP 16; TEMP 98; O2SAT 100
[2023-12-11 23:54] LABS: COVID19 ANTIGEN SOFIA FIA NEGATIVE (NEGATIVE); Rapid Influenza A Negative (Negative); Rapid Influenza B Negative (Negative)
[2023-12-12] VITALS (10 sets, daily range): BP systolic 119–132; BP diastolic 64–78; PULSE 67–83; RESP 16–18; TEMP 98–98.6; O2SAT 90–98
[2023-12-12] MEDS: CITALOPRAM HYDROBR 20 MG TAB PO SCH (05:19)
[2023-12-12] MEDS: methylPREDNISolone SOD SUCC 125 MG/2 ML VL IV SCH (05:21)
[2023-12-12] MEDS: HYDROcodone-ACET 5/325MG TAB PO ONE (05:22)
[2023-12-12 05:31] LABS: Basophils # (auto) 0 10 ^3/uL (0-0.2); Basophils % (auto) 0.2 % (0.0-2.0); Eosinophils # (auto) 0 10 ^3/uL (0-0.8); Eosinophils % (auto) 0.9 % (0.0-7.0); Hematocrit 30.4 % (36.0-46.0); Hemoglobin 10.6 g/dL (12.2-16.2); Lymphocytes % (auto) 24.2 % (10.0-50.0); Mean Corpuscular Hemoglobin 31.2 pg (28.0-32.0); Mean Corpuscular Hgb Conc. 34.8 g/dL (32.0-36.0); Mean Corpuscular Volume 89.6 fL (80.0-100.0); Monocytes # (auto) 0.5 10 ^3/uL (0-1.3); Monocytes % (auto) 12.7 % (0.0-12.0); Neutrophils # (auto) 2.6 10 ^3/uL (1.6-8.6); Nucleated Red Blood Cells % 0.2 %; Platelet Count (auto) 166 10^3/uL (140-450); Red Blood Cells 3.39 10^6/uL (4.0-5.20); Red Cell Distribution Width 13.6 % (11.8-14.3); White Blood Cell 4.2 10^3/uL (4.4-10.8)
[2023-12-12 05:45] LABS: Alanine Aminotransferase 16 U/L (7-40); Albumin 3.3 g/dL (3.2-4.8); Alkaline Phosphatase 72 U/L (46-116); Anion Gap 2 (5-15); Calcium 9.5 mg/dL (8.7-10.4); Carbon Dioxide 33 mmol/L (20-30); Chloride 104 mmol/L (98-107); Glucose 94 mg/dL (74-106); Potassium 3.8 mmol/L (3.5-5.1); Sodium 139 mmol/L (136-145)
[2023-12-12 05:46] LABS: Aspartate Aminotransferase 18 U/L (13-40); Bilirubin, Total 0.5 mg/dL (0.2-1.0); Blood Urea Nitrogen 8 mg/dL (9-23); Total Protein 5.6 g/dL (5.7-8.2)
[2023-12-12] MEDS: ENOXAPARIN SOD 30 MG/0.3 ML SYRINGE SC SCH (09:31)
[2023-12-12] MEDS: METOPROLOL SUCCINATE XL 50 MG TAB PO SCH (09:32)
[2023-12-12] MEDS: FLUPHENAZINE HCL 5 MG PO SCH (09:39)
[2023-12-12] MEDS: Myrbetriq 25 MG PO SCH (09:40)
[2023-12-12] MEDS: PANTOPRAZOLE 40 MG/10 ML VIAL INJ IV SCH (09:40)
[2023-12-12] MEDS: AMOXICILLIN/CLAVULAN 500 MG TAB PO ONE (15:49)
[2023-12-12] MEDS ORDERED: levoFLOXacin 250MG 50 ML IV SCH (18:00)
[2023-12-12] MEDS: AMOXICILLIN/CLAVULAN 500 MG TAB PO SCH (21:57)
[2023-12-13] VITALS (8 sets, daily range): BP systolic 108–153; BP diastolic 61–80; PULSE 76–80; RESP 16–18; TEMP 97.7–98.3; O2SAT 97–99
[2023-12-13] MEDS: HYDROcodone-ACET 7.5/325MG TAB PO PRN (11:22)
[2023-12-13] MEDS ORDERED: AMOX500T92 PO (14:33)
[2023-12-13] MEDS ORDERED: MUPI2CRE17 EX (15:24)
[2023-12-13] MEDS ORDERED: DOXY1CAP58 PO (15:24)
[2023-12-13] MEDS ORDERED: MUPIROCIN 2% OINT 15gm or 22gm FOR MRSA NARES EACHNOSTRI SCH (22:00)
== END 2023-12-13 17:20 | disposition home health service (06) | DRG 177 ==
LOC: ER 10:27 → OVERFLOW 17:34 → WEST WING 17:34
PROVIDERS: ADMIT Internal Medicine Pulmonary Disease; ATTEND Emergency Medicine
DX: J15.69 Pneumonia due to other Gram-negative bacteria (principal); E43 Unspecified severe protein-calorie malnutrition; G93.41 Metabolic encephalopathy; I48.20 Chronic atrial fibrillation, unspecified; J44.0 Chronic obstructive pulmonary disease with (acute) lower respiratory infection; I50.32 Chronic diastolic (congestive) heart failure; J96.10 Chronic respiratory failure, unspecified whether with hypoxia or hypercapnia; J15.9 Unspecified bacterial pneumonia; F03.90 Unspecified dementia, unspecified severity, without behavioral disturbance, psychotic disturbance, mood disturbance, and anxiety; F20.9 Schizophrenia, unspecified; M06.9 Rheumatoid arthritis, unspecified; I11.0 Hypertensive heart disease with heart failure; Z20.822 Contact with and (suspected) exposure to COVID-19; Z99.81 Dependence on supplemental oxygen; Z87.440 Personal history of urinary (tract) infections; Z85.3 Personal history of malignant neoplasm of breast; Z88.8 Allergy status to other drugs, medicaments and biological substances; Z79.899 Other long term (current) drug therapy; Z87.891 Personal history of nicotine dependence; Z68.21 Body mass index [BMI] 21.0-21.9, adult
CPT/HCPCS: 36415; 70450; 71045; 80053; 81001; 83605; 83880; 85025; 87081; 87426; 87804; 93005; 94640; G0378; J2470